=== PATIENT | female | born 1990 | race Hispanic/Latino ===

== ENCOUNTER 2017-04-17 15:03 | Emergency (ER) | payer BC, SELFPAY ==
[2017-04-17] MEDS ORDERED: Bicillin LA 1.2 MILLION UNITS/2 ML SYRINGE ONE (16:21)
[2017-04-17] MEDS ORDERED: Dexamethasone 4 mg/ml Vial ONE (16:26)
== END 2017-04-17 17:03 | disposition home or self-care (01) ==
LOC: ERS 15:03
DX: J02.0 Streptococcal pharyngitis (principal)
CPT/HCPCS: 87430; 96372; J0561; J1100

== ENCOUNTER 2019-10-27 18:29 | Emergency (ER) | payer BC, OTHER ==
[2019-10-28 14:02] LABS: SARS-CoV-2 MS2 Positive; SARS-CoV-2 N Gene Positive; SARS-CoV-2 S Gene Positive; SARS-CoV-2 orf1ab Positive
== END 2019-10-27 18:55 | disposition home or self-care (01) ==
LOC: ERS 18:29
DX: U07.1 COVID-19 (principal)
CPT/HCPCS: 87635; 99284; U0003